=== PATIENT | male | born 1960 | race Caucasian/White ===

== ENCOUNTER 2016-08-31 20:25 | Emergency (ER) | payer BC ==
[~2016-08-31] VITALS: Ht 185.4 cm; Wt 80.7 kg
[2016-08-31] MEDS ORDERED: MEDROL DOSEPAK4 MG ORAL (20:34)
[2016-08-31] MEDS ORDERED: Bupivacaine 0.5% Inj 30 ml vial INJ ONE (21:00)
[2016-08-31] MEDS ORDERED: Norco 5mg/325mg tab ORAL ONE (21:00)
[2016-08-31] MEDS ORDERED: Tetanus/Diptheria/Pertussis Vaccine 0.5ml Syr IM ONE (21:00)
[2016-08-31] MEDS ORDERED: IBUPROFEN600 MG ORAL (21:54)
[2016-08-31] MEDS ORDERED: BACITRACIN ZIN1 EACH TOPIC (21:54)
[2016-08-31] MEDS ORDERED: Bacitracin Oint UD TOPIC ONE ×2 (21:55→22:00)
[2016-08-31] MEDS ORDERED: Polysporin Oint 30gm TOPIC ONE (22:00)
[2016-08-31 22:08] VITALS: BP 133/87
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
--- NOTE | 2016-09-01 11:41 | Diagnostic Imaging Report ---
Indication: pain Findings: 3 views of the left hand were obtained. Normal bony mineralization and alignment are demonstrated. No acute fractures, erosions, or periosteal reaction are seen. Soft tissues are unremarkable. Vascular calcifications are noted. Impression: No acute finding
== END 2016-08-31 22:20 | disposition home or self-care (01) ==
LOC: EMR 22:18
DX: S61.412A Laceration without foreign body of left hand, initial encounter (principal); S60.112A Contusion of left thumb with damage to nail, initial encounter; M20.012 Mallet finger of left finger(s); Z23 Encounter for immunization; J45.909 Unspecified asthma, uncomplicated; W37.8XXA Explosion and rupture of other pressurized tire, pipe or hose, initial encounter; Y92.9 Unspecified place or not applicable
CPT/HCPCS: 12002; 29130; 73130; 90471; 90715; 96372; 99284; J3490

== ENCOUNTER 2019-08-27 17:46 | Emergency (ER) | payer BC ==
[~2019-08-27] VITALS: Ht 182.9 cm; Wt 81.6 kg
[~2019-08-27 17:46] MED LIST: BACITRACIN ZIN1 EACH TOPIC; IBUPROFEN600 MG ORAL; MEDROL DOSEPAK4 MG ORAL
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
--- NOTE | 2019-08-27 18:37 | NUR ---
ED Nurse Note: MARGARET Parker at bed side applyed radha, patien tolerated procedure well.
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
[2019-08-27] MEDS ORDERED: TYLENOL EXTRA500 MG ORAL (18:45)
[2019-08-27] MEDS ORDERED: BACITRACIN15 GM TOPIC (18:45)
[2019-08-27] MEDS ORDERED: Bacitracin Oint UD TOPIC ONE (18:45)
[2019-08-27] MEDS ORDERED: CEPHALEXIN500 MG ORAL (18:45)
--- NOTE | 2019-08-27 19:00 | NUR ---
ED Nurse Note: Splint was aplyed by Shailesh, crutches were provided.
[2019-08-27 19:12] VITALS: BP 136/83
--- NOTE | 2019-08-27 19:12 | NUR ---
ED Nurse Note: Pt cleared by health care Provider for discharge. DC instructions/prescription was given and explained to pt and verbalized understanding of teachings. All medical deviecs such as ID band removed. Pt is AAO x4, ambulatory and left with all personal belongings.
== END 2019-08-27 19:13 | disposition home or self-care (01) ==
LOC: EMR 18:00
DX: S81.811A Laceration without foreign body, right lower leg, initial encounter (principal); T23.262A Burn of second degree of back of left hand, initial encounter; W01.0XXA Fall on same level from slipping, tripping and stumbling without subsequent striking against object, initial encounter; Y92.9 Unspecified place or not applicable
CPT/HCPCS: 99283